=== PATIENT | male | born 1995 | race Hispanic/Latino ===

== ENCOUNTER 2018-11-14 08:46 | Emergency (ER) | payer SELFPAY ==
[~2018-11-14] VITALS: Ht 165.1 cm; Wt 96.0 kg
[2018-11-14] MEDS ORDERED: ACULAR LS0.4 % OD (09:29)
[2018-11-14] MEDS ORDERED: ERYTHROMYCIN O3.5 GM OU (09:29)
[2018-11-14 09:58] VITALS: BP 123/80
== END 2018-11-14 10:04 | disposition home or self-care (01) | DRG 125 ==
LOC: ED 08:46
DX: H10.31 Unspecified acute conjunctivitis, right eye (principal)